=== PATIENT | male | born 1940 | race Caucasian/White ===

== ENCOUNTER 2016-11-21 06:17 | Day surgery (SDC) | payer OTHER ==
--- NOTE | 2016-11-20 19:23 | HISTORY AND PHYSICAL ---
ADMITTED: 11/21/2016 HISTORY OF PRESENT ILLNESS: The patient is a 76-year-old male who presents with a painful right foot and heel. States it has been symptomatic for quite some time. Reports that it has been difficult to walk. We had carried out a very similar procedure on his left foot in 2009. States that he would like to have a very similar procedure carried out. MEDICAL/SURGICAL HISTORY: Past medical history: Includes a history of arthritis, back problems, foot and leg cramps, history of hepatitis. He has some cardiac issue, is well-maintained. Surgical history: He has had both knees replaced, one by Dr. Garcia, the aforementioned left foot surgery carried out by myself. PCP: Rebecca Mcallister MD. MEDICATIONS: 1. Vicodin 7.5 mg 1 by mouth q.6 hours. 2. Temazepam 5 mg 1 by mouth at bedtime. 3. Multivitamins. ALLERGIES: REPORTS AN ALLERGY TO: 1. STREPTOMYCIN. 2. PENICILLIN. SOCIAL HISTORY: He is , retired . Does not smoke or drink. FAMILY HISTORY: Sister and father have heart disease, as well as a stroke. Sister has history of diabetes. REVIEW OF SYSTEMS: Ten-point review of systems; history of hepatitis, yellow jaundice, as well as a heart issue. PHYSICAL EXAMINATION: GENERAL: The patient is alert and oriented x3. HEENT: PERRLA. Normocephalic. HEART: Regular rate and rhythm. LUNGS: Respiration clear to auscultation. No wheezing, rhonchi, or rales. ABDOMEN: Soft, tender, nondistended. No palpable masses. NEUROLOGIC: Negative Babinski. EXTREMITIES: Lower extremity/Vascular: DP and PT pulses are palpable. Subpapillary venous plexus capillary refill within normal limits. Posteriorly the right heel has a very prominent exostosis at the tendo-Achilles insertion. There is noted ankle joint equinus, as well as knee extended and flexed. Pain with palpation to the inferior aspect of the heel. LAB/IMAGING: Imaging: Revealed exostoses and hypertrophy of the posterior superior aspect of the os calcis, as well as a very large exostosis at the insertion of the tendo- Achilles. Also, very large heel spur at the insertion of the plantar fascia. Ultrasound: Revealed inflamed bursa and hypoechoic areas of the plantar fascia. 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 3. Plantar fasciitis. PLAN: The patient is scheduled for an endoscopic gastrocnemius resection, Chad resection, with release of the Achilles and reattachment, heel spur resection and a Bladen. There are no contraindications to surgery at this time. Surgery is scheduled on outpatient basis at [facility] on 11/21/2016. He has been cleared by his driver's license reviewing officer. We have discussed a spinal anesthetic as the procedure of choice for our scheduled surgical procedures.
[~2016-11-21] VITALS: Ht 179.1 cm; Wt 107.9 kg
[~2016-11-21 06:17] MED LIST: ASPIRIN ADULT L81 M1 PO; METOPROLOL TART25 MG PO; MULTIPLE VITAMIN PO; RESTORIL7.5 MG PO; ROBAXIN-750750 MG PO; SIMVASTATIN80 MG PO; VICODIN EQUIVAL1 TAB PO
[2016-11-21] MEDS ORDERED: HYDROMORPHONE HC2 MG PO (10:56)
--- NOTE | 2016-11-21 10:57 | Provider's Discharge Care Plan ---
Problem, Goal, Plan Problem List 1. Calcaneal spur, right foot Goals: Improve function Instructions: Follow up as directed
--- NOTE | 2016-11-21 10:57 | Provider's Discharge Care Plan ---
Problem, Goal, Plan Problem List 1. Calcaneal spur, right foot Goals: Improve function Instructions: Follow up as directed
--- NOTE | 2016-11-21 19:38 | OPERATIVE REPORT ---
DATE OF SURGERY: 11/21/2016 SURGEON: Brannon Cummings DPM PREOPERATIVE DIAGNOSES: 1. Insertional Achilles tendinitis 2. Chad deformity 3. Plantar fasciitis POSTOPERATIVE DIAGNOSES: 1. Insertional Achilles tendinitis 2. Chad deformity 3. Plantar fasciitis PROCEDURES PERFORMED: 1. Endoscopic gastrocnemius release 2. Chad resection 3. Plantar fasciotomy via Lenora and a PRP injection ANESTHESIA: General. HEMOSTASIS: Achieved by a mid-thigh tourniquet inflated to 275 mmHg pressure. TOURNIQUET TIME: Total tourniquet time 94 minutes. MATERIALS: 3-0 and 4-0 Polysorb, 4-0 Surgipro and one Arthrex SpeedBridge with 4 SwiveLocks and #2 FiberTape. INJECTABLES: Injected 20 mL of 0.5% bupivacaine plain. COMPLICATIONS: Several attempts were made by the anesthesia provider for a spinal anesthetic; however, it was unsuccessful and they converted it into a general endotracheal intubation. CONDITION: The patient tolerated anesthesia, procedure well. INDICATIONS: The patient is a 76-year-old male with a chronic chief complaint of painful right heel pain. States it is difficult walking. Said he is not that physical; however, has difficulty with walking. Has been cleared by his machine compositor with a moderate risk for anesthesia. He is well aware of the planned procedure. There are no contraindications to surgery at this time. SURGICAL TECHNIQUE: At this time, patient was brought to the operating room, placed on the operating room table in a seated position. Several attempts were made by the anesthesia provider to deliver a spinal anesthetic; however, they were unsuccessful. Therefore, he was moved back over to the [facility] where a general anesthetic was administered. A pneumatic tourniquet was then placed above the right knee. He was then placed on the operating table in a prone position. The right lower extremity was prepped and draped in normal sterile fashion. An intraoperative pause was carried out for positive identification, proper limb, consent form verified and confirmed. An Esmarch bandage was then utilized to exsanguinate the limb. Tourniquet was then inflated. Attention was then directed to procedure #1. Endoscopic gastroc release. Attention was directed to the proximal medial aspect of the lower leg where approximately 2 cm inferior to the medial head of the gastroc where the dropoff was visualized and palpated. A small vertical incision was made medially. It was deepened by sharp and blunt dissection. An elevator was then placed from medial to lateral, just posterior to the muscle and the fascial layer palpated laterally, a small vertical incision was made. A trocar obturator was then placed. Foot was forcibly dorsiflexed. The camera was then inserted medially. A probe was then utilized to identify the fascia. Several passes of the hook blade were utilized to release the adhesions with visualization of the musculature was visualized and revealing a release. The camera and blade were transposed for any remaining lateral adhesions released. The area was flushed. The incisions were then reapproximated with 4-0 Surgipro. Attention directed to procedure #2. Chad resection with Arthrex SpeedBridge. At this time, a curvilinear incision was made from the just medial aspect of the distal tendo-Achilles, extending down centrally and more central lateral. It was deepened by sharp and blunt dissection, paratenon was incised. The Achilles tendon was then bisected on the superior aspect of the os calcis centrally then down distal to its insertion. It was retracted both medial and laterally. The hypertrophied posterior superior calcaneus was initially incised with a sagittal saw and then remaining portion was then released with an osteotome and mallet. The hypertrophied exostosis at the tendo-Achilles insertion point was resected with osteotome and mallet. Area was then contoured and roughened with a reciprocating rasp. Employing the Arthrex SpeedBridge, a 3.4 drill was then driven on the area over the posterior superior aspect of the os calcis, tapped and SwiveLocks were then inserted with #2 FiberTape exiting. They were passed up through the Achilles tendon, both medial and laterally and advanced plantarly. Just inferior to the tendo-Achilles insertion additional portals were made with the 3.4 drill, tapped, SwiveLocks were introduced in the FiberWire and tape was then inserted with the foot held in a slightly dorsiflexed position. The FiberWire was placed permanently into the os calcis. The tendon was reapproximated and plicated with 3-0 Polysorb, paratenon was applied with 4-0 Polysorb, as well as subcutaneous tissue. Skin edges were then reapproximated in running fashion with 4-0 Surgipro. Attention was then directed to procedure 3. Exostectomy and plantar fasciotomy via Lenora. A vertical medial incision was made just proximal to the abductor hallucis muscle belly. [place] elevator was then utilized on the inferior aspect of the os calcis, freeing up adhesions. Utilizing fluoroscopy, the hypertrophied bone on site 6 of the os calcis was excised completely. The area was flushed. The incision was then reapproximated with 4-0 Polysorb. Attention was directed to plantar aspect of the heel where a 0.062 K-wire was then utilized to percutaneously fenestrate the heel from medial to lateral. Approximately 14 percutaneous holes were made then followed up by radiofrequency ablation of the fascia at set 4 with an Arthrotek wand under a saline drip. The wand was removed. Then a PRP injection was carried out up at the gastroc-soleal complex and then again at the plantar fascia insertion point. The area was locally anesthetized with the aforementioned local anesthetic. A light compressive dressing was applied and tourniquet was released. Prior to leaving the patient was placed in a posterior splint and with foot at 90 degrees of lower leg. Prognosis is guarded. The patient was then placed back on the [facility] in a supine position. He left the operating room with vital signs stable. While in recovery, written explicit instructions for absolutely nonweightbearing with the aid of a knee scooter. Prognosis is guarded. He will be discharged home in stable condition.
== END 2016-11-21 14:08 | disposition home or self-care (01) ==
LOC: OR SRH 06:17 → SCU SRH 06:22 → OR SRH 07:30
PROVIDERS: Podiatrist
PROC: 0J8Q3ZZ Division of Right Foot Subcutaneous Tissue and Fascia, Percutaneous Approach (ICD-10-PCS; principal; 2016-11-21 07:30)
PROC: 0L8 Tendons, Division (ICD-10-PCS; principal; 2016-11-21 07:30)
PROC: 0QBL0ZZ Excision of Right Tarsal, Open Approach (ICD-10-PCS; principal; 2016-11-21 07:30)
DX: M92.61 Juvenile osteochondrosis of tarsus, right ankle (principal); M72.2 Plantar fascial fibromatosis; M76.61 Achilles tendinitis, right leg; I10 Essential (primary) hypertension; Z95.5 Presence of coronary angioplasty implant and graft; I25.2 Old myocardial infarction
CPT/HCPCS: 29229; 29240; 50002; 60001; 70002; 80071; 80102; 80212; 80356; 80461; 82056; 83169; 83206; 83224; 83419; 83426; 83801; 83860; 84038; 84081; 84148; 84522; 85692; 90047; 90074; 95059